=== PATIENT | female | born 1950 | race African-American/Black ===

== ENCOUNTER 2016-10-03 04:02 | Emergency (ER) | payer MEDICARE, BC ==
[~2016-10-03] VITALS: Ht 165.1 cm; Wt 59.0 kg
[~2016-10-03 04:02] MED LIST: CYCLOBENZAPRINE10 MG ORAL; IBUPROFEN600 MG ORAL; IBUPROFEN800 MG ORAL; MIRALAX17 GM ORAL; NORCO 5-325 TA1 EAC1 ORAL; NORCO 5-325 TA1 EACH ORAL; PHENAZOPYRIDIN100 MG ORAL; POLYETHYLENE GL17 GM ORAL; RESTORIL30 MG ORAL; RYTARY ER 36.21 EACH PO; SINEMET 25-1001 EAC1 ORAL; SINEMET 25/1001 EA ORAL; TEMAZEPAM15 MG ORAL; TEMAZEPAM30 MG ORAL
[2016-10-03] MEDS ORDERED: LORazepam Inj 2mg/ml 1ml IV ONE (04:15)
[2016-10-03 04:35] LABS: EOSINOPHILS % (AUTO) 1.2 % (0.0-3.0); LYMPHOCYTES % (AUTO) 29.1 % (20.0-45.0); MEAN CORPUSCULAR HEMOGLOBIN 30.7 PG (27.0-31.0); MEAN CORPUSCULAR HGB CONC 32.9 G/DL (32.0-36.0); MEAN CORPUSCULAR VOLUME 93 FL (80-99); MEAN PLATELET VOLUME 6.1 FL (6.5-10.1); MONOCYTES % (AUTO) 3.4 % (1.0-10.0); NEUTROPHILS % (AUTO) 65.3 % (45.0-75.0); PLATELET COUNT 254 K/UL (150-450); RED BLOOD COUNT 4.32 M/UL (4.20-5.40); RED CELL DISTRIBUTION WIDTH 11.3 % (11.6-14.8); WHITE BLOOD COUNT 5.6 K/UL (4.8-10.8)
[2016-10-03 04:50] LABS: ANION GAP 10 (5-15); CALCIUM 9.5 mg/dL (8.6-10.2); CARBON DIOXIDE 28 mEQ/L (20-30); CHLORIDE 101 mEQ/L (98-107); CREATININE 0.7 mg/dL (0.5-0.9); GLOMERULAR FILTRATION RATE > 60 mL/min (>60); HEMOLYSIS 3; SODIUM 139 mEQ/L (135-145)
--- NOTE | 2016-10-03 05:14 | Emergency Room Report ---
History of Present Illness General Chief Complaint: General Complaint Source: Patient, Medical Record Present Illness HPI This is a 5-year-old female with end-stage Parkinson disease. She resided [facility]. She presents with chief complaint of tremulous. She normally get tremors from her Parkinson but this is alert worse. Also complaining of some mild soreness of breath he said because of it. No fever or chills. No nausea no vomiting. Nothing made it better. Nothing made it worse. Onset for last 30 minutes. Similar symptom in the past. Allergies: Coded Allergies: INFLUENZA VIRUS VACCINES (Unverified Allergy, Unknown, 06/07/15) Uncoded Allergies: FLU VACCINE (Allergy, Unknown, 04/30/15) Patient History Past Medical History: see triage record, old chart reviewed Past Surgical History: other Pertinent Family History: none Social History: Denies: smoking Last Menstrual Period: NA Now: No Immunizations: other Reviewed Nursing Documentation: PMH: Agreed, PSxH: Agreed Nursing Documentation-PMH Hx Cardiac Problems: No Hx Cancer: No Review of Systems Eye: Denies: blurred vision, eye pain ENT: Denies: ear pain, nose congestion, throat swelling Respiratory: Denies: cough, shortness of breath Cardiovascular: Denies: chest pain, palpitations Gastrointestinal: Denies: abdominal pain, diarrhea, nausea, vomiting Musculoskeletal: Denies: back pain, joint pain Skin: Denies: rash Neurological: Denies: headache, numbness Endocrine: Denies: increased thirst, increased urine Hematologic/Lymphatic: Denies: easy bruising All Other Systems: negative except mentioned in HPI Physical Exam Vital Signs Date Time Temp Pulse Resp B/P Pulse Ox O2 Delivery O2 Flow Rate FiO2 10/03/16 04:02 99.0 104 18 106/65 97 Room Air vitals normal Sp02 EP Interpretation: reviewed, normal General Appearance: no apparent distress, alert, Chronically Ill Head: normocephalic, atraumatic Eyes: bilateral eye EOMI, bilateral eye PERRL ENT: hearing grossly normal, normal pharynx Neck: full range of motion, supple, no meningismus Respiratory: chest non-tender, lungs clear, normal breath sounds Cardiovascular #1: regular rate, rhythm, no murmur Gastrointestinal: normal bowel sounds, non tender, no mass, no organomegaly, no bruit, non-distended Musculoskeletal: back normal, normal range of motion, other - Tremulous Psychiatric: anxious Skin: warm/dry Medical Decision Making Diagnostic Impression: Primary Impression: severe tremor ER Course Patient with severe tremors. Her caretakers to use around 3 or 4:00 in the morning. Probably secondary to dystonia from Sinemet. We'll discharge home. She's better after Ativan. Last Vital Signs Date Time Temp Pulse Resp B/P Pulse Ox O2 Delivery O2 Flow Rate FiO2 10/03/16 04:02 99.0 104 18 106/65 97 Room Air Status: improved Disposition: HOME, SELF-CARE Condition: Stable Scripts Lorazepam* (ATIVAN*) 0.5 Mg Tablet 0.5 MG ORAL DAILY, #30 TAB Prov: ELMO ROOT M.D. 10/03/16 Additional Instructions: Followup with your DrGisela in 7 days. Return if symptom worsen. ELMO ROOT M.D. Oct 03, 2016 05:14
[2016-10-03 05:16] LABS: APPEARANCE,URINE CLEAR; KETONES,URINE 1+ (NEGATIVE); LEUKOCYTE ESTERASE ,URINE NEGATIVE (NEGATIVE); NITRITE,URINE NEGATIVE (NEGATIVE); PH,URINE 6 (4.5-8.0); PROTEIN,URINE NEGATIVE (NEGATIVE); UROBILINOGEN,URINE NORMAL MG/DL (0.0-1.0)
[2016-10-03] MEDS ORDERED: ATIVAN0.5 MG ORAL (06:03)
[2016-10-03 06:14] VITALS: BP 110/76
[2016-10-03 06:15] VITALS: BP 110/80
--- NOTE | 2016-10-03 11:52 | Diagnostic Imaging Report ---
Indications: Shortness of breath Technique: AP chest Findings: Comparison: 06/07/15 Lung volumes have symmetrically increased. Attenuation of bronchovascular markings persist in both upper lung zones. Lungs remain clear. Heart remains within normal limits. No pleural abnormalities. Aortic arch calcification, osteopenia again noted. IMPRESSION: Findings of COPD. Increased lung volumes are present improved inspiration and/or air trapping Otherwise no evidence of acute disease, unchanged Stable chronic changes as described
== END 2016-10-03 06:40 | disposition home or self-care (01) ==
LOC: EDBD 04:02 → EMR 04:15
DX: G20 Parkinson's disease (principal); Z88.7 Allergy status to serum and vaccine
CPT/HCPCS: 36415; 71010; 80048; 81003; 85025; 96374

== ENCOUNTER 2016-10-11 21:13 | Emergency (ER) | payer MEDICARE, BC ==
[~2016-10-11] VITALS: Ht 157.5 cm; Wt 46.3 kg
[~2016-10-11 21:13] MED LIST changes: +ATIVAN0.5 MG ORAL
[2016-10-11] MEDS ORDERED: Fleet's Enema 133ml RECTAL ONE (21:30)
--- NOTE | 2016-10-11 21:30 | Emergency Room Report ---
History of Present Illness General Chief Complaint: Constipation Source: Patient Present Illness HPI Is a 65-year-old female with multiple medical problems. Patient presents with constipation and impaction. She said she had had a bowel movement for 3 weeks. No fever chills been no nausea vomiting. Hasn't anybody until recently. She spoke with her doctor today who told her to go to ER for enema. I saw her recently for severe tremors and she did not mention anything about this. Patient denies any fever chills denies any nausea vomiting. Has abdominal fullness this has urged to go but said the stool was too big. Denies any other complaint. Allergies: Coded Allergies: INFLUENZA VIRUS VACCINES (Unverified Allergy, Unknown, 10/11/16) Uncoded Allergies: FLU VACCINE (Allergy, Unknown, 04/30/15) Patient History Past Medical History: see triage record, old chart reviewed Past Surgical History: other Pertinent Family History: none Social History: Denies: smoking Last Menstrual Period: n/a Now: No Immunizations: other Reviewed Nursing Documentation: PMH: Agreed, PSxH: Agreed Nursing Documentation-PMH Past Medical History: No History, Except For Hx Cardiac Problems: No Hx Cancer: No Review of Systems Eye: Denies: eye pain, blurred vision ENT: Denies: ear pain, nose congestion, throat swelling Respiratory: Denies: cough, shortness of breath Cardiovascular: Denies: chest pain, palpitations Gastrointestinal: Reports: constipation, Denies: abdominal pain, diarrhea, nausea, vomiting Musculoskeletal: Denies: back pain, joint pain Skin: Denies: rash Neurological: Denies: headache, numbness Endocrine: Denies: increased thirst, increased urine Hematologic/Lymphatic: Denies: easy bruising All Other Systems: negative except mentioned in HPI Physical Exam Vital Signs Date Time Temp Pulse Resp B/P (MAP) Pulse Ox O2 Delivery O2 Flow Rate FiO2 10/11/16 21:16 97.3 78 16 115/71 99 Room Air vitals normal Sp02 EP Interpretation: reviewed, normal General Appearance: no apparent distress, alert, Chronically Ill Head: normocephalic, atraumatic Eyes: bilateral eye PERRL, bilateral eye EOMI ENT: hearing grossly normal, normal pharynx Neck: full range of motion, supple, no meningismus Respiratory: chest non-tender, lungs clear, normal breath sounds Cardiovascular #1: regular rate, rhythm, no murmur Gastrointestinal: normal bowel sounds, non tender, no mass, no organomegaly, no bruit, non-distended Rectal: normal exam, normal rectal tone, heme negative stool, other - Hard stool but not abundant Musculoskeletal: back normal, normal range of motion, other - Uses a walker Psychiatric: mood/affect normal Skin: warm/dry Medical Decision Making Diagnostic Impression: Primary Impression: Constipation Qualified Codes: K59.00 - Constipation, unspecified ER Course Patient with constipation. She had this problem before. I see no evidence of obstruction. I did some disimpaction gave her an enema. Patient did have good results. We'll discharge home. She had a new prescription for constipation. Doesn't know the name. We'll going on for lactulose. Last Vital Signs Date Time Temp Pulse Resp B/P (MAP) Pulse Ox O2 Delivery O2 Flow Rate FiO2 10/11/16 21:16 97.3 78 16 115/71 99 Room Air Status: improved Disposition: HOME, SELF-CARE Condition: Stable Scripts Lactulose (LACTULOSE*) 20 Gm/30 Ml Solution 30 ML ORAL DAILY, #240 ML 0 Refills Prov: ELMO ROOT M.D. 10/11/16 Patient Instructions: Constipation, Adult Additional Instructions: Followup your Dr. in 3-5 days. Return if symptom worsen. May use Fleet enemas as an outpatient. This can be purchased [id number]. ELMO ROOT M.D. Oct 11, 2016 21:30
[2016-10-11] MEDS ORDERED: LACTULOSE20 GM/301 ORAL (21:44)
[2016-10-11 22:08] VITALS: BP 115/71
== END 2016-10-11 22:08 | disposition home or self-care (01) ==
LOC: EMR 21:30
DX: K59.00 Constipation, unspecified (principal)
CPT/HCPCS: 99283